=== PATIENT | female | born 1945 | race Caucasian/White ===

== ENCOUNTER 2020-10-24 17:47 | Emergency (ER) | payer MEDICARE ==
--- NOTE | 2020-10-24 20:11 | ED Physician Documentation ---
History of Present Illness - Stated complaint Stated Complaint: RT LEG SWELLING - Chief complaint Chief Complaint: Ext Problem - Additonal information Additional information: 75-year-old female presents emergency department for evaluation of right lower leg swelling and pain. This has been present for about a month. It follows an event where she tore her Achilles tendon and was in a boot for quite an extended period of time. She discussed this concern with her primary and she was advised to come to the ER. She denies chest pain or shortness of air. She has no history of DVT or cancer. She does not take any anticoagulation medicines. Review of Systems Constitutional: reports: Reviewed and negative Ears: reports: Reviewed and negative Nose: reports: Reviewed and negative Throat: reports: Reviewed and negative Cardiac: reports: Reviewed and negative Respiratory: reports: Reviewed and negative GI: reports: Reviewed and negative : reports: Reviewed and negative Musculoskeletal: reports: Extremity pain (Right lower extremity) PD PAST MEDICAL HISTORY - Allergies Allergies/Adverse Reactions: Allergies Allergy/AdvReac Type Severity Reaction Status Date / Time nitrofurantoin Allergy Unknown Verified 10/24/20 17:56 [From Macrodantin] oxycodone Allergy Rash Verified 10/24/20 17:56 Penicillins Allergy Unknown Verified 10/24/20 17:56 PD ED PE EXPANDED - General General: Alert, No acute distress - Extremities Extremities: Right leg (Mild swelling and pedal edema of the right leg. 2+ DP pulse. Mild posterior calf pain tenderness.) Results - Vitals Vitals: Vital Signs - 24 hr 10/24/20 10/24/20 17:56 20:35 Temperature 36.5 C 36.6 C Heart Rate 76 76 Respiratory 16 18 Rate Blood Pressure 154/71 H 135/76 H O2 Saturation 99 98 Oxygen O2 Source Room air - Rads (name of study) Right US DVT Radiology: Final report received (No DVT. Partial Achilles tendon tear.) PD MEDICAL DECISION MAKING - ED course Complexity details: reviewed results, re-evaluated patient, d/w patient, d/w family ED course: 75-year-old female presents emergency department for evaluation of right lower foot swelling and calf pain. This does follow an event where she tore her Achilles tendon. She has been followed by orthopedics and was in a boot for a while. Given the presence of the boot the concern was that she could have a DVT. Ultrasound was negative however it does reveal the Achilles tear. Patient is advised to continue in the boot and follow-up with orthopedics. Immobilization is going to be important in the long-term and she may benefit from further evaluation with MRI. Departure - Departure Disposition: 01 Home, Self Care Clinical Impression: Achilles tendon tear Qualifiers: Encounter type: initial encounter Laterality: right Qualified Code(s): S86.011A - Strain of right Achilles tendon, initial encounter Condition: Stable Record reviewed to determine appropriate education?: Yes Instructions: Achilles Tendonitis Comments: The ultrasound of your right leg does not show a blood clot. However it does continue to show the Achilles tendon tear. In the long-term it is important that this heal well. I do recommend that you begin wearing the boot again and stay off your foot is much as possible. Please continue to follow-up with your orthopedist in [facility]. As it has failed to heal you may benefit from an MRI physical therapy or further intervention which could include surgery.
--- NOTE | 2020-10-24 20:50 | Ultrasound Report ---
PROCEDURE: Duplex Ext Veins Right INDICATIONS: RLE pain, swelling TECHNIQUE: Real-time imaging, as well as color and pulse Doppler interrogation, were performed of the lower extr emity deep veins from the inguinal ligament to the popliteal fossa. COMPARISON: None. FINDINGS: The deep veins are normally compressible, and free of intraluminal thrombus. Color and pu lse Doppler demonstrate normal phasic intraluminal flow. There is normal augmentation response to di stal compression maneuver. Within the mid calf there is a heterogeneous focus of echogenicity measuring 1.7 x 3.0 x 0.8 cm. This becomes contiguous with the posterior fossa. In addition, areas poorly characterized Achilles tendon . However, it appears mildly prominent. IMPRESSION: 1. No deep venous thrombosis. 2. Focus of heterogeneous echogenicity along the medial calf suggestive of hematoma. 3. Poorly characterized although appearing prominent Achilles tendon. Inflammatory change cannot be e xcluded. If this remains of concern, MRI is recommended for further evaluation. Reviewed by: Karla Spencer MD on 10/24/2020 8:49 PM PDT Approved by: Karla Spencer MD on 10/24/2020 8:49 PM PDT Station ID: [id number]
[2020-10-24 21:20] VITALS: BP 125/78
== END 2020-10-24 21:20 | disposition home or self-care (01) ==
LOC: ED 17:47
DX: S86.011A Strain of right Achilles tendon, initial encounter (principal); X58.XXXA Exposure to other specified factors, initial encounter
CPT/HCPCS: 99282; 99284